=== PATIENT | female | born 1965 | race Asian ===

== ENCOUNTER 2020-06-23 08:37 | Emergency (ER) | payer MEDICAID ==
[~2020-06-23] VITALS: Ht 160 cm; Wt 52.5 kg
[2020-06-23] MEDS ORDERED: KETOROLAC 30 MG/1 ML IM ONE (09:00)
[2020-06-23] MEDS ORDERED: KETOROLAC 30 MG/1 ML ONE (09:26)
--- NOTE | 2020-06-23 09:42 | NUR ---
PT ARRIVED TO ER C/O RIGHT SHOULDER PAIN. NO TRAUMA NOTED. PT STATES SHE EXPERIENCED SIMILAR PAIN IN 2018 DUE TO WORK [employer]. PT MEDICATED PER DEC.
[2020-06-23 09:59] VITALS: BP 170/67
--- NOTE | 2020-06-23 10:00 | NUR ---
PT STATES PAIN IMPROVED FROM A 10/10 TO A 7/10 AFTER MED ADMINISTRATION.
== END 2020-06-23 10:09 | disposition home or self-care (01) ==
LOC: ED 09:27
DX: M75.31 Calcific tendinitis of right shoulder (principal)
CPT/HCPCS: 73030; 96372; 99283; J1885